=== PATIENT | female | born 1960 | race Caucasian/White ===

== ENCOUNTER → 2021-11-09 | Outpatient (CLI) | payer OTHER ==
--- NOTE | 2021-11-09 12:39 | RAD ---
EXAM: Chest, 2 views. HISTORY: Cough. COMPARISON: None. FINDINGS: 2 views of the chest are obtained. There is no infiltrate, pleural fusion or pneumothorax. The heart is normal in size. IMPRESSION: No acute pulmonary finding. Electronically signed by: Charlee Ibarra MD (11/09/2021 12:36 PM) [id number]
== END ==
LOC: RAD 12:08
PROVIDERS: ATTEND Physician Assistant
DX: R05.9 Cough, unspecified (principal)
CPT/HCPCS: 71046